=== PATIENT | female | born 1980 | race Hispanic/Latino ===

== ENCOUNTER 2017-02-23 21:25 | Emergency (ER) | payer MEDICARE, MEDICAID ==
[2017-02-23 21:32] VITALS: RESP 18; TEMP 98.3
[2017-02-23 21:33] VITALS: PULSE 107; O2SAT 100
[2017-02-23 22:27] LABS: RBC URINE 1 /hpf (0-3); URINE BACTERIA MANY (<OCC); URINE BILIRUBIN NEGATIVE (NEGATIVE); URINE BLOOD NEGATIVE (NEGATIVE); URINE COLOR STRAW (YELLOW); URINE GLUCOSE (UA) NEG (Normal); URINE KETONE TRACE mg/dL (NEGATIVE); URINE LEUKOCYTE ESTERASE NEG Leu/uL (Negative); URINE PROTEIN NEGATIVE (NEGATIVE); URINE UROBILINOGEN 0.2-1.0 mg/dL (0.2-1.0); WBC URINE 1 /hpf (0-5)
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
== END 2017-02-24 04:37 | disposition home or self-care (01) ==
LOC: H.ER 21:25
DX: F12.10 Cannabis abuse, uncomplicated (principal)
CPT/HCPCS: 81003; 81025; 99282; G0480